=== PATIENT | female | born 2000 | race Caucasian/White ===

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

== ENCOUNTER 2018-07-06 19:17 | Emergency (ER) | payer SELFPAY, OTHER ==
[2018-07-06] MEDS: SOD CHLORIDE 0.9% 1,000 ML IV (19:29)
[2018-07-06] MEDS: METHYLPREDNISOLONE 125 MG INJ IV (19:29)
[2018-07-06] MEDS: IPRATROPIUM (NEB) 0.5 MG/2.5 ML AMP INH (19:32)
[2018-07-06] MEDS: ALBUTEROL 0.5% (NEB) 2.5 MG/0.5 ML AMP INH (19:33)
== END 2018-07-06 21:07 | disposition home or self-care (01) ==
LOC: FTE 19:17
DX: J45.901 Unspecified asthma with (acute) exacerbation (principal)
CPT/HCPCS: 71045; 94644; 96374; 99284-25

== ENCOUNTER 2018-08-21 04:27 | Inpatient (IN) | payer MEDICAID ==
[2018-08-21] MEDS: ALBUTEROL 0.5% (NEB) 2.5 MG/0.5 ML AMP INH (04:43)
[2018-08-21] MEDS: IPRATROPIUM (NEB) 0.5 MG/2.5 ML AMP INH (04:43)
[2018-08-21] MEDS: METHYLPREDNISOLONE 125 MG INJ IV (04:52)
[2018-08-21] MEDS: SOD CHLORIDE 0.9% 1,000 ML IV (04:53)
[2018-08-21 05:30] LABS: ADD MAN DIFF? NO
[2018-08-21 05:31] LABS: ABNORMAL IP MESSAGE 1; BASOPHIL # 0.1 10^3/ul (0.0-0.1); BASOPHILS % 0.7 % (0.0-2.0); EOSINOPHILS # 1.2 10^3/ul (0.0-0.5); EOSINOPHILS % 7.9 % (0.0-7.0); HEMATOCRIT 37.5 % (37.0-47.0); HEMOGLOBIN 12.1 g/dl (12.0-16.0); LYMPHOCYTES % 12.8 % (18.0-55.0); MEAN CORPUSCULAR HEMOGLOBIN 28.7 pg (29.0-33.0); MEAN CORPUSCULAR HGB CONC 32.3 g/dl (32.0-37.0); MEAN CORPUSCULAR VOLUME 88.9 fl (72.0-104.0); MONOCYTE # 1.7 10^3/ul (0.3-0.9); MONOCYTES % 10.8 % (0.0-13.0); NEUTROPHIL # 10.4 10^3/ul (1.6-7.5); NEUTROPHILS % 67.4 % (30.0-74.0); PLATELET COUNT 315 10^3/UL (140-415); RED BLOOD COUNT 4.22 10^6/ul (4.20-5.40); RED CELL DISTRIBUTION WIDTH 14.1 % (11.5-14.5)
[2018-08-21 05:31] LABS: WHITE BLOOD COUNT 15.5 10^3/ul (4.8-10.8)
[2018-08-21 05:32] LABS: POSITIVE DIFF @See below
[2018-08-21] MEDS: KETOROLAC 15 MG INJ IV (05:40)
[2018-08-21 05:49] LABS: ANION GAP 10 (5-13); BLOOD UREA NITROGEN 15 mg/dl (7-20); CALCIUM 8.8 mg/dl (8.4-10.2); CARBON DIOXIDE 24 mmol/L (21-31); CHLORIDE 108 mmol/L (97-110); GLUCOSE 110 mg/dl (70-220); POTASSIUM 3.8 mmol/L (3.5-5.1); SODIUM 142 mmol/L (135-144)
[2018-08-21] MEDS ORDERED: ONDANSETRON 4 MG INJ IV (06:00)
[2018-08-21] MEDS ORDERED: NACL 0.9% 3 ML SYG IV (06:00)
[2018-08-21] MEDS: OXYCODONE/ACETAMINOPHEN (5/325) TAB PO (06:05)
[2018-08-21] MEDS: PANTOPRAZOLE (EC) 40 MG TAB PO (06:06)
[2018-08-21] MEDS: LEVALBUTEROL (NEB) 0.63 MG/3 ML AMP HHN ×5 (09:00→23:55)
[2018-08-21] MEDS: KETOROLAC 30 MG INJ IV ×3 (10:07→23:57)
[2018-08-21] MEDS: predniSONE 20 MG TAB PO (10:07)
[2018-08-21] MEDS: ACETAMINOPHEN 325 MG TAB PO (15:26)
[2018-08-21] MEDS: GUAIFENESIN/DM 5ML CUP PO ×2 (15:26→21:27)
[2018-08-21] MEDS: IPRATROPIUM (NEB) 0.5 MG/2.5 ML AMP HHN ×2 (18:40→20:46)
[2018-08-21] MEDS: MONTELUKAST 10 MG TAB PO (21:23)
[2018-08-22] MEDS: GUAIFENESIN/DM 5ML CUP PO ×3 (01:37→09:41)
[2018-08-22] MEDS: LEVALBUTEROL (NEB) 0.63 MG/3 ML AMP HHN ×3 (04:17→12:25)
[2018-08-22 05:11] LABS: ADD MAN DIFF? NO
[2018-08-22 05:14] LABS: BASOPHILS % 0.3 % (0.0-2.0); EOSINOPHILS % 0.2 % (0.0-7.0); HEMATOCRIT 35.4 % (37.0-47.0); HEMOGLOBIN 11.6 g/dl (12.0-16.0); LYMPHOCYTES # 1.7 10^3/ul (0.8-2.9); LYMPHOCYTES % 12.7 % (18.0-55.0); MEAN CORPUSCULAR HEMOGLOBIN 28.6 pg (29.0-33.0); MEAN CORPUSCULAR HGB CONC 32.8 g/dl (32.0-37.0); MEAN CORPUSCULAR VOLUME 87.4 fl (72.0-104.0); MEAN PLATELET VOLUME 10.4 fl (7.4-10.4); MONOCYTE # 1.4 10^3/ul (0.3-0.9); MONOCYTES % 10.7 % (0.0-13.0); NEUTROPHIL # 9.9 10^3/ul (1.6-7.5); NEUTROPHILS % 75.6 % (30.0-74.0); PLATELET COUNT 318 10^3/UL (140-415); RED BLOOD COUNT 4.05 10^6/ul (4.20-5.40); RED CELL DISTRIBUTION WIDTH 14.3 % (11.5-14.5)
[2018-08-22] MEDS: PANTOPRAZOLE (EC) 40 MG TAB PO (05:34)
[2018-08-22 06:14] LABS: ALANINE AMINOTRANSFERASE 43 IU/L (13-69); ALBUMIN 3.4 g/dl (3.3-4.9); ALBUMIN/GLOBULIN RATIO 1.13; ALKALINE PHOSPHATASE 65 IU/L (42-121); ANION GAP 9 (5-13); ASPARTATE AMINO TRANSFERASE 28 IU/L (15-46); BILIRUBIN,INDIRECT 0.3 mg/dl (0-1.1); BILIRUBIN,TOTAL 0.3 mg/dl (0.2-1.3); BLOOD UREA NITROGEN 14 mg/dl (7-20); CALCIUM 9.6 mg/dl (8.4-10.2); CARBON DIOXIDE 24 mmol/L (21-31); CHLORIDE 107 mmol/L (97-110); CREATININE 0.59 mg/dl (0.44-1.00); GLUCOSE 106 mg/dl (70-220); POTASSIUM 4.2 mmol/L (3.5-5.1); SODIUM 140 mmol/L (135-144); TOTAL PROTEIN 6.4 g/dl (6.1-8.1)
[2018-08-22 06:38] LABS: ADD UMIC YES; UR ASCORBIC ACID 40 mg/dL (NEGATIVE); UR BACTERIA FEW /HPF (NONE SEEN); UR BILIRUBIN (Dip) NEGATIVE (NEGATIVE); UR BLOOD (Dip) NEGATIVE (NEGATIVE); UR CLARITY SLIGHTLY CLOUDY (CLEAR); UR COLOR YELLOW (YELLOW); UR GLUCOSE (Dip) NEGATIVE (NEGATIVE); UR KETONES (Dip) TRACE mg/dL (NEGATIVE); UR LEUKOCYTE ESTERASE (Dip) NEGATIVE Leu/ul (NEGATIVE); UR MUCUS FEW /HPF (NONE SEEN); UR NITRITE (Dip) NEGATIVE (NEGATIVE); UR RBC 1 /HPF (0-5); UR SPECIFIC GRAVITY (Dip) 1.032 (1.003-1.030); UR SQUAMOUS EPITHELIAL CELL MODERATE /HPF (FEW); UR TOTAL PROTEIN (Dip) 1+ mg/dl (NEGATIVE); UR UROBILINOGEN (Dip) 2+ mg/dL (NEGATIVE); UR WBC 8 /HPF (0-5)
[2018-08-22] MEDS: predniSONE 20 MG TAB PO (09:08)
== END 2018-08-22 13:15 | disposition home or self-care (01) | DRG 203 ==
LOC: E/R 04:27 → MS1 05:25
DX: J45.901 Unspecified asthma with (acute) exacerbation (principal); J42 Unspecified chronic bronchitis; D72.829 Elevated white blood cell count, unspecified; R00.0 Tachycardia, unspecified; Z87.891 Personal history of nicotine dependence
CPT/HCPCS: 71045; 80048; 80053; 81001; 84703; 85025; 94640; 94644; 94664; 96374; 99285-25

== ENCOUNTER 2018-09-06 00:50 | Emergency (ER) | payer MEDICAID | END 2018-09-06 04:00 | disposition home or self-care (01) | LOC: FTE 00:50 | DX: S01.112A Laceration without foreign body of left eyelid and periocular area, initial encounter (principal); S09.90XA Unspecified injury of head, initial encounter; J45.909 Unspecified asthma, uncomplicated; W01.198A Fall on same level from slipping, tripping and stumbling with subsequent striking against other object, initial encounter; Y92.002 Bathroom of unspecified non-institutional (private) residence as the place of occurrence of the external cause | CPT/HCPCS: 12011; 99283-25 ==

== ENCOUNTER 2018-09-10 19:12 | Emergency (ER) | payer MEDICAID | END 2018-09-10 22:16 | disposition left against medical advice (07) | LOC: FTE 19:12 | DX: Z48.01 Encounter for change or removal of surgical wound dressing (principal); J45.909 Unspecified asthma, uncomplicated | CPT/HCPCS: 99281; Z7502 ==

== ENCOUNTER → 2018-12-26 | Emergency (ER) | payer MEDICAID ==
[~2018-12-26] MED LIST: ALBUTEROL 0.5% (NEB) 2.5 MG/0.5 ML AMP INH; IPRATROPIUM (NEB) 0.5 MG/2.5 ML AMP INH
[2018-12-26] MEDS: ALBUTEROL 0.5% (NEB) 2.5 MG/0.5 ML AMP INH (20:02)
[2018-12-26] MEDS: ALBUTEROL 0.083% (NEB) 2.5 MG/3 ML AMP HHN (20:08)
[2018-12-26 20:10] LABS: ADD MAN DIFF? NO
[2018-12-26] MEDS: METHYLPREDNISOLONE 125 MG INJ IV (20:10)
[2018-12-26 20:20] LABS: BASOPHIL # 0.1 10^3/ul (0.0-0.1); BASOPHILS % 1.3 % (0.0-2.0); EOSINOPHILS # 0.9 10^3/ul (0.0-0.5); EOSINOPHILS % 11.9 % (0.0-7.0); HEMATOCRIT 38.5 % (37.0-47.0); LYMPHOCYTES # 1.7 10^3/ul (0.8-2.9); LYMPHOCYTES % 22.1 % (18.0-55.0); MEAN CORPUSCULAR HGB CONC 31.2 g/dl (32.0-37.0); MEAN CORPUSCULAR VOLUME 86.7 fl (72.0-104.0); MEAN PLATELET VOLUME 11.2 fl (7.4-10.4); MONOCYTE # 0.9 10^3/ul (0.3-0.9); MONOCYTES % 11.9 % (0.0-13.0); NEUTROPHIL # 3.9 10^3/ul (1.6-7.5); NEUTROPHILS % 52.4 % (30.0-74.0); PLATELET COUNT 243 10^3/UL (140-415); RED BLOOD COUNT 4.44 10^6/ul (4.20-5.40); RED CELL DISTRIBUTION WIDTH 14.2 % (11.5-14.5)
[2018-12-26 20:20] LABS: WHITE BLOOD COUNT 7.5 10^3/ul (4.8-10.8)
[2018-12-26 20:34] LABS: ANION GAP 10 (5-13); BLOOD UREA NITROGEN 16 mg/dl (7-20); CALCIUM 9.6 mg/dl (8.4-10.2); CARBON DIOXIDE 25 mmol/L (21-31); CHLORIDE 105 mmol/L (97-110); CREATININE 0.65 mg/dl (0.44-1.00); Estimated GFR > 60 mL/min (>60); GLUCOSE 91 mg/dl (70-220); POTASSIUM 3.8 mmol/L (3.5-5.1); SODIUM 140 mmol/L (135-144)
[2018-12-26] MEDS: ACETAMINOPHEN 500 MG TAB PO (21:25)
[2018-12-27] MEDS: DEXAMETHASONE 10 MG/ML 1 ML INJ IV (00:49)
== END | disposition home or self-care (01) ==
LOC: FTE 19:34
DX: J45.901 Unspecified asthma with (acute) exacerbation (principal)
CPT/HCPCS: 80048; 85025; 87400; 94644; 96374; 96375; 99284-25

== ENCOUNTER 2019-01-10 14:47 | Inpatient (IN) | payer SELFPAY, MEDICAID ==
[2019-01-10] MEDS: SOD CHLORIDE 0.9% 1,000 ML IV ×2 (15:08)
[2019-01-10] MEDS: METHYLPREDNISOLONE 125 MG INJ IV (15:08)
[2019-01-10] MEDS: MAGNESIUM SULFATE 2 GM/50 ML 50 ML IVPB (15:08)
[2019-01-10] MEDS: LEVALBUTEROL (NEB) 1.25 MG/0.5 ML AMP INH ×2 (15:13→16:45)
[2019-01-10] MEDS: IPRATROPIUM (NEB) 0.5 MG/2.5 ML AMP INH ×2 (15:13→16:45)
[2019-01-10] MEDS: ACETAMINOPHEN 325 MG TAB PO (16:39)
[2019-01-10] MEDS ORDERED: ACETAMINOPHEN 325 MG TAB PO (19:00)
[2019-01-10] MEDS ORDERED: morphine 2 MG INJ IV (19:00)
[2019-01-10] MEDS ORDERED: ONDANSETRON 4 MG INJ IV (19:00)
[2019-01-10] MEDS ORDERED: ZOLPIDEM 5 MG TAB PO (19:00)
[2019-01-10] MEDS ORDERED: DOCUSATE SODIUM 100 MG CAP PO (19:00)
[2019-01-10] MEDS ORDERED: NACL 0.9% 3 ML SYG IV (19:00)
[2019-01-10] MEDS ORDERED: ALBUTEROL 0.083% (NEB) 2.5 MG/3 ML AMP HHN (19:00)
[2019-01-10] MEDS: BUDESONIDE (NEB) 0.5MG/2ML AMP HHN (20:00)
[2019-01-10] MEDS: PROMETHAZINE/CODEINE 5ML CUP PO (20:06)
[2019-01-10] MEDS: MONTELUKAST 10 MG TAB PO (20:06)
[2019-01-10] MEDS: HYDROCODONE/APAP (5/325) TAB PO (21:56)
[2019-01-10] MEDS: METHYLPREDNISOLONE 40 MG INJ IV (23:52)
[2019-01-11] MEDS: PROMETHAZINE/CODEINE 5ML CUP PO ×2 (03:59→13:18)
[2019-01-11] MEDS: METHYLPREDNISOLONE 40 MG INJ IV ×2 (05:56→11:32)
[2019-01-11] MEDS: ENOXAPARIN 40 MG/0.4 ML SYG SC (08:15)
[2019-01-11] MEDS: BUDESONIDE (NEB) 0.5MG/2ML AMP HHN (08:30)
== END 2019-01-11 14:51 | disposition home or self-care (01) | DRG 203 ==
LOC: E/R 14:47 → TEL 16:55
DX: J45.901 Unspecified asthma with (acute) exacerbation (principal); Z87.891 Personal history of nicotine dependence
CPT/HCPCS: 71045; 94640; 94644; 94645; 94664; 96365; 96366; 96375; 99291-25

== ENCOUNTER 2019-02-03 12:21 | Emergency (ER) | payer OTHER ==
[2019-02-03] MEDS: ALBUTEROL 0.5% (NEB) 2.5 MG/0.5 ML AMP INH (12:36)
[2019-02-03] MEDS: IPRATROPIUM (NEB) 0.5 MG/2.5 ML AMP INH (12:37)
[2019-02-03] MEDS: SOD CHLORIDE 0.9% 1,000 ML IV (12:44)
[2019-02-03] MEDS: METHYLPREDNISOLONE 125 MG INJ IV (12:44)
[2019-02-03] MEDS: ALBUTEROL 0.083% (NEB) 2.5 MG/3 ML AMP HHN (14:54)
[2019-02-03] MEDS: IPRATROPIUM (NEB) 0.5 MG/2.5 ML AMP HHN (14:54)
== END 2019-02-03 15:55 | disposition home or self-care (01) ==
LOC: FTE 12:21
DX: J45.901 Unspecified asthma with (acute) exacerbation (principal)
CPT/HCPCS: 94644; 94645; 96374; 99285-25

== ENCOUNTER 2019-02-27 19:16 | Emergency (ER) | payer OTHER ==
[2019-02-27] MEDS: IPRATROPIUM (NEB) 0.5 MG/2.5 ML AMP HHN (19:42)
[2019-02-27] MEDS: ALBUTEROL 0.083% (NEB) 2.5 MG/3 ML AMP HHN (19:42)
[2019-02-27] MEDS: predniSONE 20 MG TAB PO (20:17)
[2019-02-27] MEDS: ALBUTEROL 0.5% (NEB) 2.5 MG/0.5 ML AMP INH (20:21)
== END 2019-02-27 21:59 | disposition home or self-care (01) ==
LOC: E/R 19:16
DX: J45.901 Unspecified asthma with (acute) exacerbation (principal)
CPT/HCPCS: 94644; 94664; 99284-25

== ENCOUNTER 2019-03-27 14:41 | Emergency (ER) | payer OTHER ==
[2019-03-27] MEDS: IPRATROPIUM (NEB) 0.5 MG/2.5 ML AMP INH (14:59)
[2019-03-27] MEDS: ALBUTEROL 0.5% (NEB) 2.5 MG/0.5 ML AMP INH (14:59)
[2019-03-27] MEDS: DEXAMETHASONE 10 MG/ML 1 ML INJ IV (15:12)
[2019-03-27] MEDS: MAGNESIUM SULFATE 2 GM/50 ML 50 ML IVPB (15:13)
[2019-03-27] MEDS: ALBUTEROL 0.083% (NEB) 2.5 MG/3 ML AMP NEB (18:56)
[2019-03-27] MEDS: IPRATROPIUM (NEB) 0.5 MG/2.5 ML AMP NEB (18:56)
== END 2019-03-27 19:27 | disposition home or self-care (01) ==
LOC: E/R 14:41
DX: J45.901 Unspecified asthma with (acute) exacerbation (principal)
CPT/HCPCS: 36415; 94640; 94644; 94664; 96365; 96366; 96375; 99284-25

== ENCOUNTER 2019-04-01 18:56 | Inpatient (IN) | payer OTHER ==
[2019-04-01] MEDS: ALBUTEROL 0.5% (NEB) 2.5 MG/0.5 ML AMP INH (19:04)
[2019-04-01] MEDS: IPRATROPIUM (NEB) 0.5 MG/2.5 ML AMP INH (19:05)
[2019-04-01] MEDS: MAGNESIUM SULFATE 2 GM/50 ML 50 ML IVPB (19:08)
[2019-04-01 19:09] LABS: ABNORMAL IP MESSAGE 1; HEMATOCRIT 40.5 % (37.0-47.0); HEMOGLOBIN 12.6 g/dl (12.0-16.0); MEAN CORPUSCULAR HEMOGLOBIN 26.3 pg (29.0-33.0); MEAN CORPUSCULAR HGB CONC 31.1 g/dl (32.0-37.0); MEAN CORPUSCULAR VOLUME 84.6 fl (82.0-101.0); PLATELET COUNT 486 10^3/UL (140-415); RED BLOOD COUNT 4.79 10^6/ul (4.20-5.40)
[2019-04-01 19:09] LABS: WHITE BLOOD COUNT 28.4 10^3/ul (4.8-10.8)
[2019-04-01] MEDS: SOD CHLORIDE 0.9% 500 ML IV (19:09)
[2019-04-01] MEDS: DEXAMETHASONE 10 MG/ML 1 ML INJ IV (19:09)
[2019-04-01 19:14] LABS: POSITIVE DIFF @See below
[2019-04-01 19:15] LABS: ADD MAN DIFF? YES; PATH REVIEW? YES
[2019-04-01 19:29] LABS: ANION GAP 8 (5-13); BLOOD UREA NITROGEN 8 mg/dl (7-20); CALCIUM 8.7 mg/dl (8.4-10.2); CARBON DIOXIDE 25 mmol/L (21-31); CHLORIDE 106 mmol/L (97-110); CREATININE 0.61 mg/dl (0.44-1.00); Estimated GFR > 60 mL/min (>60); GLUCOSE 143 mg/dl (70-220); POTASSIUM 3.8 mmol/L (3.5-5.1); SODIUM 139 mmol/L (135-144)
[2019-04-01 19:45] LABS: ANISOCYTOSIS 1+ (0-0); EOSINOPHILS % (M) 3 % (0-7); GIANT THROMBO% (M) 1 % (0-0); LYMPHOCYTES #M 5.6 10^3/ul (0.8-2.9); LYMPHOCYTES % (M) 20 % (15-51); MICROCYTOSIS 1+ (0-0); MONOCYTE #M 1.4 10^3/ul (0.3-0.9); MONOCYTES % (M) 5 % (0-11); PLATELET ESTIMATE NORMAL; SEGMENTED NEUTROPHILS (M) % 72 % (39-77)
[2019-04-01 19:53] LABS: AADO2 Arterial 237.4 mmHg (7.0-24.0); Allen Test ACCEPTAB; Arterial Base Excess -4.4 mmol/L (-3.0-3); Arterial Blood Gas Oxygen Sat 96.9 mmHG (95.0-98.0); Arterial COHb 0.3 % (0.0-3.0); Arterial Fraction of Oxyhgb 96.3 % (93.0-99.0); Arterial MetHb 0.3 % (0.0-1.5); Arterial pCO2 39.6 mmhg (35-45); MODE MASK - SIMPLE; Site Right Radial
[2019-04-01] MEDS: morphine 4 MG/ML VIAL IV (20:08)
[2019-04-01] MEDS: ONDANSETRON 4 MG INJ IV (20:08)
[2019-04-01] MEDS: KETOROLAC 30 MG INJ IV (21:43)
[2019-04-01 21:48] LABS: D-DIMER 812.87 ng/ml (<460)
[2019-04-01] MEDS ORDERED: ACETAMINOPHEN 325 MG TAB PO (22:30)
[2019-04-01] MEDS ORDERED: ONDANSETRON 4 MG INJ IV (22:30)
[2019-04-01] MEDS: SOD CHLORIDE 0.9% 100 ML (22:49)
[2019-04-01] MEDS: IOHEXOL 100 ML (22:49)
[2019-04-02] MEDS ORDERED: ACETAMINOPHEN 325 MG TAB PO (01:30)
[2019-04-02] MEDS ORDERED: NACL 0.9% 3 ML SYG IV (01:30)
[2019-04-02] MEDS ORDERED: ONDANSETRON 4 MG INJ IV (01:30)
[2019-04-02] MEDS: morphine 4 MG/ML VIAL IV ×6 (02:23→20:03)
[2019-04-02] MEDS: IBUPROFEN 600 MG TAB PO (02:23)
[2019-04-02] MEDS: ALBUTEROL/IPRATROPIUM (NEB) 3 ML AMP HHN ×6 (02:30→20:01)
[2019-04-02] MEDS: CEFTRIAXONE 1 GM/50 ML (PMX) 50 ML IVPB (03:35)
[2019-04-02] MEDS: AZITHROMYCIN 500MG/NS (PMX) 250 ML IVPB (04:41)
[2019-04-02 06:02] LABS: ADD MAN DIFF? NO
[2019-04-02 06:10] LABS: ABNORMAL IP MESSAGE 1; HEMATOCRIT 34.2 % (37.0-47.0); HEMOGLOBIN 10.8 g/dl (12.0-16.0); LYMPHOCYTES # 0.4 10^3/ul (0.8-2.9); LYMPHOCYTES % 5.7 % (15.0-51.0); MEAN CORPUSCULAR HGB CONC 31.6 g/dl (32.0-37.0); MEAN CORPUSCULAR VOLUME 82.4 fl (82.0-101.0); MEAN PLATELET VOLUME 9.7 fl (7.4-10.4); MONOCYTE # 0.4 10^3/ul (0.3-0.9); MONOCYTES % 6.1 % (0.0-11.0); NEUTROPHIL # 6.2 10^3/ul (1.6-7.5); NEUTROPHILS % 87.9 % (39.0-77.0); PLATELET COUNT 256 10^3/UL (140-415); RED BLOOD COUNT 4.15 10^6/ul (4.20-5.40); RED CELL DISTRIBUTION WIDTH 15.9 % (11.5-14.5)
[2019-04-02 06:18] LABS: POSITIVE DIFF @See below
[2019-04-02 06:44] LABS: ALANINE AMINOTRANSFERASE 47 IU/L (13-69); ALBUMIN 3.4 g/dl (3.3-4.9); ALBUMIN/GLOBULIN RATIO 1.25; ALKALINE PHOSPHATASE 47 IU/L (42-121); ANION GAP 8 (5-13); ASPARTATE AMINO TRANSFERASE 22 IU/L (15-46); BILIRUBIN,INDIRECT 0.3 mg/dl (0-1.1); BILIRUBIN,TOTAL 0.3 mg/dl (0.2-1.3); BLOOD UREA NITROGEN 7 mg/dl (7-20); CALCIUM 8.8 mg/dl (8.4-10.2); CARBON DIOXIDE 20 mmol/L (21-31); CHLORIDE 109 mmol/L (97-110); CREATININE 0.52 mg/dl (0.44-1.00); Estimated GFR > 60 mL/min (>60); GLUCOSE 178 mg/dl (70-220); MAGNESIUM 2.3 mg/dl (1.7-2.5); PHOSPHORUS 3.1 mg/dl (2.5-4.9); POTASSIUM 4.2 mmol/L (3.5-5.1); SODIUM 137 mmol/L (135-144); TOTAL PROTEIN 6.1 g/dl (6.1-8.1)
[2019-04-02 06:59] LABS: HEMOGLOBIN A1C 5.4 % (0-5.9)
[2019-04-02 07:06] LABS: THYROID STIMULATING HORMONE < 0.015 MIU/L (0.465-4.680)
[2019-04-02] MEDS: predniSONE 20 MG TAB PO (08:51)
[2019-04-02] MEDS: BACLOFEN 10 MG TAB PO (08:52)
[2019-04-02 09:53] LABS: FREE T4 (FREE THYROXINE) 2.17 ng/dl (0.79-2.35)
[2019-04-02] MEDS ORDERED: VITAMIN A & D 5 GM OINT PACKET TOP (10:00)
[2019-04-02] MEDS ORDERED: PETROLATUM 5 GM OINT TOP (11:00)
[2019-04-02] MEDS: GUAIFENESIN 20 MG/ML 5ML CUP PO ×3 (14:24→20:10)
[2019-04-02] MEDS: METHYLPREDNISOLONE 40 MG INJ IV (20:03)
[2019-04-03] MEDS: morphine 4 MG/ML VIAL IV ×5 (00:07→16:12)
[2019-04-03] MEDS: ALBUTEROL/IPRATROPIUM (NEB) 3 ML AMP HHN ×3 (00:07→08:00)
[2019-04-03] MEDS: AZITHROMYCIN 500MG/NS (PMX) 250 ML IVPB (04:36)
[2019-04-03] MEDS: GUAIFENESIN 20 MG/ML 5ML CUP PO ×2 (04:36→08:53)
[2019-04-03 06:11] LABS: ADD MAN DIFF? NO
[2019-04-03 06:22] LABS: BASOPHILS % 0.1 % (0.0-2.0); HEMOGLOBIN 10.5 g/dl (12.0-16.0); LYMPHOCYTES # 0.8 10^3/ul (0.8-2.9); LYMPHOCYTES % 8.1 % (15.0-51.0); MEAN CORPUSCULAR HEMOGLOBIN 26.3 pg (29.0-33.0); MEAN CORPUSCULAR HGB CONC 31.8 g/dl (32.0-37.0); MEAN CORPUSCULAR VOLUME 82.5 fl (82.0-101.0); MEAN PLATELET VOLUME 10.2 fl (7.4-10.4); MONOCYTE # 0.6 10^3/ul (0.3-0.9); MONOCYTES % 5.7 % (0.0-11.0); NEUTROPHIL # 8.7 10^3/ul (1.6-7.5); NEUTROPHILS % 85.7 % (39.0-77.0); PLATELET COUNT 284 10^3/UL (140-415); RED CELL DISTRIBUTION WIDTH 16.8 % (11.5-14.5)
[2019-04-03 06:22] LABS: WHITE BLOOD COUNT 10.2 10^3/ul (4.8-10.8)
[2019-04-03 06:46] LABS: PHOSPHORUS 4.1 mg/dl (2.5-4.9)
[2019-04-03 06:46] LABS: MAGNESIUM 1.9 mg/dl (1.7-2.5)
[2019-04-03 06:51] LABS: ANION GAP 7 (5-13); BLOOD UREA NITROGEN 7 mg/dl (7-20); CALCIUM 8.5 mg/dl (8.4-10.2); CARBON DIOXIDE 21 mmol/L (21-31); CHLORIDE 111 mmol/L (97-110); Estimated GFR > 60 mL/min (>60); GLUCOSE 136 mg/dl (70-220); POTASSIUM 4.3 mmol/L (3.5-5.1); SODIUM 139 mmol/L (135-144)
[2019-04-03] MEDS: METHYLPREDNISOLONE 40 MG INJ IV (08:02)
[2019-04-03] MEDS: PRENATAL VITAMIN PO (10:15)
== END 2019-04-03 18:12 | disposition home or self-care (01) | DRG 832 ==
LOC: TEL 22:05 → E/R 18:56
PROC: 4A033R1 Measurement of Arterial Saturation, Peripheral, Percutaneous Approach (ICD-10-PCS; principal; 2019-04-01)
DX: O99.511 Diseases of the respiratory system complicating pregnancy, first trimester (principal); J45.31 Mild persistent asthma with (acute) exacerbation; Z3A.11 11 weeks gestation of pregnancy
CPT/HCPCS: 36415; 36600; 71045; 71275; 76801; 80048; 80053; 82803; 83036; 83735; 84100; 84439; 84443; 84702; 84703; 85025; 85378; 93005; 94640; 94644; 94660; 94664; 96374; 96375; 99285-25

== ENCOUNTER 2019-05-18 04:29 | Emergency (ER) | payer OTHER ==
[2019-05-18 04:42] LABS: ADD MAN DIFF? NO
[2019-05-18 04:47] LABS: WHITE BLOOD COUNT 23.2 10^3/ul (4.8-10.8)
[2019-05-18 04:47] LABS: ABNORMAL IP MESSAGE 1; BASOPHIL # 0.2 10^3/ul (0.0-0.1); BASOPHILS % 0.6 % (0.0-2.0); EOSINOPHILS # 1.9 10^3/ul (0.0-0.5); HEMOGLOBIN 12.6 g/dl (12.0-16.0); LYMPHOCYTES # 3.8 10^3/ul (0.8-2.9); LYMPHOCYTES % 16.2 % (15.0-51.0); MEAN CORPUSCULAR HGB CONC 30.7 g/dl (32.0-37.0); MEAN PLATELET VOLUME 9.6 fl (7.4-10.4); MONOCYTE # 2.1 10^3/ul (0.3-0.9); NEUTROPHIL # 15.1 10^3/ul (1.6-7.5); NEUTROPHILS % 64.9 % (39.0-77.0); PLATELET COUNT 412 10^3/UL (140-415); RED BLOOD COUNT 4.66 10^6/ul (4.20-5.40); RED CELL DISTRIBUTION WIDTH 16.3 % (11.5-14.5)
[2019-05-18] MEDS: METHYLPREDNISOLONE 125 MG INJ IV (04:50)
[2019-05-18] MEDS: MAGNESIUM SULFATE 2 GM/50 ML 50 ML IVPB (04:50)
[2019-05-18 04:51] LABS: POSITIVE DIFF @See below
[2019-05-18] MEDS: ALBUTEROL 0.5% (NEB) 2.5 MG/0.5 ML AMP INH ×2 (04:52→07:10)
[2019-05-18] MEDS: IPRATROPIUM (NEB) 0.5 MG/2.5 ML AMP INH (04:52)
[2019-05-18] MEDS: SOD CHLORIDE 0.9% 500 ML IV (04:55)
[2019-05-18 05:14] LABS: INR 0.91; PARTIAL THROMBOPLASTIN TIME 23.3 Sec (23.0-35.0); PROTIME 12.4 Sec (11.9-14.9)
[2019-05-18 05:15] LABS: ALANINE AMINOTRANSFERASE 34 IU/L (13-69); ALBUMIN/GLOBULIN RATIO 1.29; ALKALINE PHOSPHATASE 60 IU/L (42-121); ANION GAP 15 (5-13); ASPARTATE AMINO TRANSFERASE 42 IU/L (15-46); BILIRUBIN,INDIRECT 0.3 mg/dl (0-1.1); BILIRUBIN,TOTAL 0.3 mg/dl (0.2-1.3); BLOOD UREA NITROGEN 12 mg/dl (7-20); CALCIUM 8.7 mg/dl (8.4-10.2); CARBON DIOXIDE 20 mmol/L (21-31); CHLORIDE 106 mmol/L (97-110); CREATININE 0.67 mg/dl (0.44-1.00); Estimated GFR > 60 mL/min (>60); GLUCOSE 209 mg/dl (70-220); SODIUM 141 mmol/L (135-144); TOTAL PROTEIN 7.1 g/dl (6.1-8.1)
[2019-05-18 05:22] LABS: AADO2 Arterial 101.8 mmHg (7.0-24.0); Allen Test ACCEPTAB; Arterial Base Excess -6.2 mmol/L (-3.0-3); Arterial Blood Gas Oxygen Sat 97.9 mmHG (95.0-98.0); Arterial COHb 0.3 % (0.0-3.0); Arterial Fraction of Oxyhgb 97.3 % (93.0-99.0); Arterial MetHb 0.3 % (0.0-1.5); Arterial pCO2 42.3 mmhg (35-45); MODE MASK - SIMPLE; Site Left Radial
[2019-05-18 05:26] LABS: B-TYPE NATRIURETIC PEPTIDE 67 PG/ML (0-125); TROPONIN-I < 0.012 ng/ml (0.000-0.120)
[2019-05-18] MEDS: PROMETHAZINE/CODEINE 5ML CUP PO (05:27)
[2019-05-18] MEDS ORDERED: ONDANSETRON 4 MG INJ IV (06:00)
[2019-05-18] MEDS ORDERED: ACETAMINOPHEN 325 MG TAB PO (06:00)
[2019-05-18] MEDS ORDERED: ALBUTEROL/IPRATROPIUM (NEB) 3 ML AMP HHN (08:56)
[2019-05-18] MEDS ORDERED: IPRATROPIUM (NEB) 0.5 MG/2.5 ML AMP HHN (09:00)
== END 2019-05-18 10:52 | disposition left against medical advice (07) ==
LOC: E/R 04:29
DX: J45.51 Severe persistent asthma with (acute) exacerbation (principal); F17.210 Nicotine dependence, cigarettes, uncomplicated
CPT/HCPCS: 36415; 36600; 71045; 80053; 82803; 83605; 83880; 84484; 85025; 85610; 85730; 93005; 94640; 94644; 94645; 96361; 96374; 96375; 99285-25

== ENCOUNTER 2019-05-18 08:47 | Observation (INO) | payer OTHER ==
[2019-05-18] MEDS: ALBUTEROL 0.5% (NEB) 2.5 MG/0.5 ML AMP INH (08:58)
[2019-05-18] MEDS ORDERED: IPRATROPIUM (NEB) 0.5 MG/2.5 ML AMP (09:00)
[2019-05-18] MEDS ORDERED: ALBUTEROL 0.5% (NEB) 2.5 MG/0.5 ML AMP (09:00)
[2019-05-18] MEDS ORDERED: ACETAMINOPHEN 325 MG TAB PO ×2 (12:00→13:00)
[2019-05-18] MEDS ORDERED: ONDANSETRON 4 MG INJ IV ×2 (12:00→13:00)
[2019-05-18] MEDS ORDERED: NACL 0.9% 3 ML SYG IV (13:00)
[2019-05-18] MEDS ORDERED: MAGNESIUM HYDROXIDE 30ML CUP PO (13:00)
[2019-05-18] MEDS: ALBUTEROL/IPRATROPIUM (NEB) 3 ML AMP HHN ×2 (14:00→20:37)
[2019-05-18] MEDS: IPRATROPIUM (NEB) 0.5 MG/2.5 ML AMP HHN (14:00)
[2019-05-18] MEDS: METHYLPREDNISOLONE 125 MG INJ IV ×3 (14:03→23:34)
[2019-05-18] MEDS: AZITHROMYCIN 250 MG in SOD CHLORIDE 0.9% 250 ML IVPB (14:03)
[2019-05-18] MEDS ORDERED: KETOROLAC 30 MG INJ IV (15:00)
[2019-05-18] MEDS: morphine 2 MG INJ IV ×3 (15:11→23:35)
[2019-05-18] MEDS: FLUTICASONE/VILANTEROL 100-25 INH (16:08)
[2019-05-18] MEDS: HYDROCODONE/APAP (5/325) TAB PO ×2 (17:14→21:11)
[2019-05-18] MEDS: GUAIFENESIN/DM 5ML CUP PO ×2 (17:14→21:11)
[2019-05-18] MEDS: FAMOTIDINE 20 MG TAB PO (21:11)
[2019-05-19] MEDS: ZOLPIDEM 5 MG TAB PO
[2019-05-19 01:27] LABS: BARBITURATES Negative (NEGATIVE); BENZODIAZEPINES Negative (NEGATIVE); CANNABINOIDS Negative (NEGATIVE); COCAINE Negative (NEGATIVE)
[2019-05-19] MEDS: ALBUTEROL/IPRATROPIUM (NEB) 3 ML AMP HHN ×4 (01:31→13:47)
[2019-05-19 01:33] LABS: AMPHETAMINE/METHAMPHETAMINE Positive (NEGATIVE); OPIATES Positive (NEGATIVE)
[2019-05-19] MEDS: morphine 2 MG INJ IV ×2 (04:31→10:23)
[2019-05-19] MEDS: GUAIFENESIN/DM 5ML CUP PO ×2 (04:31→10:22)
[2019-05-19] MEDS: METHYLPREDNISOLONE 125 MG INJ IV ×2 (05:49→12:22)
[2019-05-19] MEDS: FAMOTIDINE 20 MG TAB PO (08:40)
[2019-05-19] MEDS: FLUTICASONE/VILANTEROL 100-25 INH (10:23)
[2019-05-19 10:38] LABS: ADD MAN DIFF? NO
[2019-05-19 10:49] LABS: ABNORMAL IP MESSAGE 1; BASOPHILS % 0.1 % (0.0-2.0); HEMATOCRIT 29.6 % (37.0-47.0); HEMOGLOBIN 9.8 g/dl (12.0-16.0); LYMPHOCYTES # 0.5 10^3/ul (0.8-2.9); LYMPHOCYTES % 2.8 % (15.0-51.0); MEAN CORPUSCULAR HEMOGLOBIN 27.7 pg (29.0-33.0); MEAN CORPUSCULAR HGB CONC 33.1 g/dl (32.0-37.0); MEAN CORPUSCULAR VOLUME 83.6 fl (82.0-101.0); MEAN PLATELET VOLUME 9.9 fl (7.4-10.4); MONOCYTE # 0.4 10^3/ul (0.3-0.9); MONOCYTES % 1.9 % (0.0-11.0); NEUTROPHIL # 18.1 10^3/ul (1.6-7.5); NEUTROPHILS % 94.7 % (39.0-77.0); PLATELET COUNT 264 10^3/UL (140-415); RED BLOOD COUNT 3.54 10^6/ul (4.20-5.40); RED CELL DISTRIBUTION WIDTH 16.6 % (11.5-14.5)
[2019-05-19 10:49] LABS: WHITE BLOOD COUNT 19.1 10^3/ul (4.8-10.8)
[2019-05-19 10:51] LABS: POSITIVE DIFF @See below
[2019-05-19 11:08] LABS: ALANINE AMINOTRANSFERASE 33 IU/L (13-69); ALBUMIN 2.8 g/dl (3.3-4.9); ALBUMIN/GLOBULIN RATIO 1.03; ALKALINE PHOSPHATASE 50 IU/L (42-121); ANION GAP 7 (5-13); ASPARTATE AMINO TRANSFERASE 24 IU/L (15-46); BILIRUBIN,INDIRECT 0.2 mg/dl (0-1.1); BILIRUBIN,TOTAL 0.2 mg/dl (0.2-1.3); BLOOD UREA NITROGEN 8 mg/dl (7-20); CALCIUM 8.7 mg/dl (8.4-10.2); CARBON DIOXIDE 21 mmol/L (21-31); CHLORIDE 109 mmol/L (97-110); CHOL/HDL RATIO 2.3 RATIO; CHOLESTEROL 134 mg/dl (100-200); CREATININE 0.47 mg/dl (0.44-1.00); Estimated GFR > 60 mL/min (>60); GLUCOSE 122 mg/dl (70-220); HDL CHOLESTEROL 57 mg/dl (33-83); LDL CHOLESTEROL,CALCULATED 56 mg/dl; MAGNESIUM 1.9 mg/dl (1.7-2.5); PHOSPHORUS 3.3 mg/dl (2.5-4.9); POTASSIUM 3.8 mmol/L (3.5-5.1); SODIUM 137 mmol/L (135-144); TOTAL PROTEIN 5.5 g/dl (6.1-8.1); TRIGLYCERIDES 107 mg/dl (0-149)
[2019-05-19 11:20] LABS: HEMOGLOBIN A1C 5.5 % (0-5.9)
[2019-05-19 12:53] LABS: FREE THYROXINE INDEX (Calc) 3.35 ug/ml (0.65-3.89); T3 UPTAKE 25.6 % (23.5-40.5); T4 (THYROXINE) 13.1 ug/dl (5.5-11.0)
[2019-05-19 13:09] LABS: THYROID STIMULATING HORMONE < 0.015 MIU/L (0.465-4.680)
== END 2019-05-19 14:36 | disposition home or self-care (01) ==
LOC: E/R 08:47 → TEL 11:56
DX: R06.03 Acute respiratory distress (principal); J45.901 Unspecified asthma with (acute) exacerbation; D72.829 Elevated white blood cell count, unspecified; R09.02 Hypoxemia; R06.09 Other forms of dyspnea; R94.31 Abnormal electrocardiogram [ECG] [EKG]
CPT/HCPCS: 71045; 80053; 80061; 80307; 83036; 83735; 84100; 84436; 84443; 84479; 85025; 87040-91; 87400; 94640; 94644; 94664; 99285-25; G0378

== ENCOUNTER 2019-06-19 13:09 | Emergency (ER) | payer OTHER ==
[2019-06-19 14:07] LABS: ADD MAN DIFF? NO
[2019-06-19 14:09] LABS: BASOPHIL # 0.1 10^3/ul (0.0-0.1); BASOPHILS % 0.5 % (0.0-2.0); EOSINOPHILS # 0.3 10^3/ul (0.0-0.5); EOSINOPHILS % 2.8 % (0.0-7.0); HEMATOCRIT 37.5 % (37.0-47.0); HEMOGLOBIN 11.8 g/dl (12.0-16.0); LYMPHOCYTES % 10.2 % (15.0-51.0); MEAN CORPUSCULAR HEMOGLOBIN 27.7 pg (29.0-33.0); MEAN CORPUSCULAR HGB CONC 31.5 g/dl (32.0-37.0); MONOCYTE # 0.6 10^3/ul (0.3-0.9); MONOCYTES % 6.3 % (0.0-11.0); NEUTROPHIL # 7.5 10^3/ul (1.6-7.5); NEUTROPHILS % 79.8 % (39.0-77.0); PLATELET COUNT 320 10^3/UL (140-415); RED BLOOD COUNT 4.26 10^6/ul (4.20-5.40); RED CELL DISTRIBUTION WIDTH 15.6 % (11.5-14.5)
[2019-06-19 14:09] LABS: WHITE BLOOD COUNT 9.4 10^3/ul (4.8-10.8)
[2019-06-19 14:22] LABS: ADD UMIC NO; UR AMORPHOUS CRYSTAL FEW /HPF (NONE SEEN); UR ASCORBIC ACID NEGATIVE (NEGATIVE); UR BACTERIA FEW /HPF (NONE SEEN); UR BILIRUBIN (Dip) NEGATIVE (NEGATIVE); UR BLOOD (Dip) NEGATIVE (NEGATIVE); UR CLARITY SLIGHTLY CLOUDY (CLEAR); UR COLOR YELLOW (YELLOW); UR GLUCOSE (Dip) NEGATIVE (NEGATIVE); UR KETONES (Dip) TRACE mg/dL (NEGATIVE); UR LEUKOCYTE ESTERASE (Dip) NEGATIVE Leu/ul (NEGATIVE); UR MUCUS FEW /HPF (NONE SEEN); UR NITRITE (Dip) NEGATIVE (NEGATIVE); UR RBC 0 /HPF (0-5); UR SPECIFIC GRAVITY (Dip) 1.013 (1.003-1.030); UR SQUAMOUS EPITHELIAL CELL FEW /HPF (FEW); UR TOTAL PROTEIN (Dip) NEGATIVE (NEGATIVE); UR UROBILINOGEN (Dip) NEGATIVE (NEGATIVE); UR WBC 2 /HPF (0-5)
[2019-06-19 14:36] LABS: ALANINE AMINOTRANSFERASE 22 IU/L (13-69); ALBUMIN 3.7 g/dl (3.3-4.9); ALBUMIN/GLOBULIN RATIO 1.27; ALKALINE PHOSPHATASE 60 IU/L (42-121); ANION GAP 6 (5-13); ASPARTATE AMINO TRANSFERASE 19 IU/L (15-46); BILIRUBIN,INDIRECT 0.6 mg/dl (0-1.1); BILIRUBIN,TOTAL 0.6 mg/dl (0.2-1.3); BLOOD UREA NITROGEN 4 mg/dl (7-20); CALCIUM 8.9 mg/dl (8.4-10.2); CARBON DIOXIDE 28 mmol/L (21-31); CHLORIDE 103 mmol/L (97-110); CREATININE 0.78 mg/dl (0.44-1.00); Estimated GFR > 60 mL/min (>60); GLUCOSE 110 mg/dl (70-220); POTASSIUM 4.5 mmol/L (3.5-5.1); SODIUM 137 mmol/L (135-144); TOTAL PROTEIN 6.6 g/dl (6.1-8.1)
[2019-06-19] MEDS: ALBUTEROL 0.083% (NEB) 2.5 MG/3 ML AMP NEB (17:05)
[2019-06-19] MEDS: ONDANSETRON (ODT) 4 MG TAB ODT (17:09)
== END 2019-06-19 18:05 | disposition home or self-care (01) ==
LOC: FTE 13:09
DX: O26.892 Other specified pregnancy related conditions, second trimester (principal); O99.512 Diseases of the respiratory system complicating pregnancy, second trimester; J45.909 Unspecified asthma, uncomplicated; R10.9 Unspecified abdominal pain; R05 Cough; Z3A.22 22 weeks gestation of pregnancy
CPT/HCPCS: 36415; 76801; 80053; 81001; 81003; 81025; 84702; 85025; 86900; 86901; 94664; 99284-25

== ENCOUNTER 2019-07-17 20:46 | Inpatient (IN) | payer OTHER ==
[2019-07-17] MEDS: IPRATROPIUM (NEB) 0.5 MG/2.5 ML AMP INH (21:11)
[2019-07-17] MEDS: ALBUTEROL 0.5% (NEB) 2.5 MG/0.5 ML AMP INH ×2 (21:11→23:25)
[2019-07-17] MEDS: SOD CHLORIDE 0.9% 1,000 ML IV (21:26)
[2019-07-17] MEDS: METHYLPREDNISOLONE 125 MG INJ IV (21:26)
[2019-07-17] MEDS: MAGNESIUM SULFATE 2 GM/50 ML 50 ML IVPB (21:26)
[2019-07-18] MEDS: ALBUTEROL/IPRATROPIUM (NEB) 3 ML AMP HHN ×4 (10:24→21:00)
[2019-07-18] MEDS ORDERED: ACETAMINOPHEN 325 MG TAB PO (10:30)
[2019-07-18] MEDS ORDERED: ONDANSETRON 4 MG INJ IV (10:30)
[2019-07-18] MEDS ORDERED: DOCUSATE SODIUM 100 MG CAP PO (10:30)
[2019-07-18] MEDS: METHYLPREDNISOLONE 40 MG INJ IV ×3 (13:40→22:29)
[2019-07-18] MEDS: ALBUTEROL 0.083% (NEB) 2.5 MG/3 ML AMP HHN ×2 (17:33→22:17)
[2019-07-18] MEDS: AZITHROMYCIN 500 MG in SOD CHLORIDE 0.9% 250 ML IVPB (18:08)
[2019-07-18] MEDS: NACL 0.9% 3 ML SYG IV (22:31)
[2019-07-19] MEDS ORDERED: PANTOPRAZOLE (EC) 40 MG TAB PO (06:00)
[2019-07-19] MEDS: METHYLPREDNISOLONE 40 MG INJ IV ×2 (06:02→15:10)
[2019-07-19] MEDS: NACL 0.9% 3 ML SYG IV (06:02)
[2019-07-19] MEDS: ALBUTEROL/IPRATROPIUM (NEB) 3 ML AMP HHN ×2 (07:50→12:54)
[2019-07-19] MEDS ORDERED: predniSONE 20 MG TAB PO (09:00)
[2019-07-19] MEDS: FOLIC ACID 1 MG TAB PO (09:50)
[2019-07-19] MEDS: FERROUS SULFATE (EC) 325 MG TAB PO (09:51)
== END 2019-07-19 17:04 | disposition left against medical advice (07) | DRG 832 ==
LOC: E/R 20:46 → 2NE 22:45 → PP1 07-18 18:59
DX: O99.512 Diseases of the respiratory system complicating pregnancy, second trimester (principal); J45.41 Moderate persistent asthma with (acute) exacerbation; Z3A.22 22 weeks gestation of pregnancy; Z53.21 Procedure and treatment not carried out due to patient leaving prior to being seen by health care provider
CPT/HCPCS: 71045; 76815; 76816; 76817; 80048; 84484; 85025; 94640; 94644; 94645; 94664; 96374; 96375; 99285-25